=== PATIENT | male | born 1965 | race Asian ===

== ENCOUNTER 2017-06-02 20:38 | Emergency (ER) | payer OTHER ==
[2017-06-02 21:23] VITALS: BP 137/86
== END 2017-06-02 21:23 | disposition home or self-care (01) ==
LOC: ED 20:38
DX: R05 Cough (principal); R07.9 Chest pain, unspecified

== ENCOUNTER 2017-06-10 10:00 | Emergency (ER) | payer OTHER ==
[2017-06-10 12:45] VITALS: BP 141/57
== END 2017-06-10 13:07 | disposition home or self-care (01) ==
LOC: ED 10:00
DX: J18.9 Pneumonia, unspecified organism (principal); R03.0 Elevated blood-pressure reading, without diagnosis of hypertension; F17.200 Nicotine dependence, unspecified, uncomplicated; Z71.6 Tobacco abuse counseling
CPT/HCPCS: 99406; J1885; J7613; J7644; Q0092

== ENCOUNTER 2017-11-19 16:36 | Emergency (ER) | payer OTHER ==
[~2017-11-19] VITALS: Ht 177.8 cm; Wt 109.8 kg
[2017-11-19 18:55] LABS: BASOPHIL % 0.7 % (0-2); PLATELET COUNT 256 x10^3mcL (130-400); RED CELL DISTRIBUTION WIDTH 13.8 % (11.5-14.5)
[2017-11-19 18:58] LABS: CALCIUM 8.6 mg/dL (8.5-10.1); CARBON DIOXIDE 28.6 mmol/L (21-32); CHLORIDE SERUM 101 mmol/L (98-107); CREATININE SERUM 1.3 mg/dL (0.7-1.3); GFR1 > 60 mL/min; GLUCOSE SERUM 98 mg/dL (74-106); SODIUM SERUM 135 mmol/L (136-145)
[2017-11-19 19:43] LABS: UA SPECIFIC GRAVITY 1.015 (1.005-1.035); microscopic required? YES; urine erythrocyte 1+ (NEGATIVE)
[2017-11-19 20:18] VITALS: BP 149/91
== END 2017-11-19 20:21 | disposition home or self-care (01) ==
LOC: ED 16:36
PROVIDERS: Emergency Medicine
DX: L03.116 Cellulitis of left lower limb (principal); R59.1 Generalized enlarged lymph nodes; L40.9 Psoriasis, unspecified
CPT/HCPCS: 36415; 87491; 87591

== ENCOUNTER 2020-05-09 07:47 | Emergency (ER) | payer OTHER ==
[~2020-05-09] VITALS: Ht 170.2 cm; Wt 89.8 kg
[2020-05-09 07:55] VITALS: Ht 170.2 cm; Wt 89.8 kg
[2020-05-09 08:05] VITALS: BP 126/58
== END 2020-05-09 09:50 | disposition home or self-care (01) ==
LOC: ED 07:47
DX: R56.9 Unspecified convulsions (principal); I10 Essential (primary) hypertension; Z87.442 Personal history of urinary calculi; V49.9XXA Car occupant (driver) (passenger) injured in unspecified traffic accident, initial encounter; Y93.I9 Activity, other involving external motion; Y92.413 State road as the place of occurrence of the external cause; Y99.8 Other external cause status
CPT/HCPCS: J1953; J2060

== ENCOUNTER 2020-05-29 14:02 | Emergency (ER) | payer OTHER ==
[~2020-05-29] VITALS: Ht 175.3 cm; Wt 101.2 kg
[2020-05-29 14:25] VITALS: BP 145/104; Ht 175.3 cm; Wt 101.2 kg
== END 2020-05-29 15:08 | disposition home or self-care (01) ==
LOC: ED 14:02
DX: G40.909 Epilepsy, unspecified, not intractable, without status epilepticus (principal); Z76.0 Encounter for issue of repeat prescription; I10 Essential (primary) hypertension; Z87.442 Personal history of urinary calculi; Z98.890 Other specified postprocedural states

== ENCOUNTER 2020-05-31 03:34 | Emergency (ER) | payer OTHER ==
[~2020-05-31] VITALS: Ht 177.8 cm; Wt 101.6 kg
[2020-05-31 03:40] VITALS: Ht 177.8 cm; Wt 101.6 kg
[2020-05-31 05:01] VITALS: BP 133/82
== END 2020-05-31 05:01 | disposition home or self-care (01) ==
LOC: ED 03:34
DX: R56.9 Unspecified convulsions (principal); I10 Essential (primary) hypertension; Z76.0 Encounter for issue of repeat prescription; Z87.442 Personal history of urinary calculi